=== PATIENT | female | born 1950 | race Caucasian/White ===

== ENCOUNTER 2021-10-21 12:31 | Outpatient (CLI) | payer MEDICARE, BC | END 2021-10-21 12:32 | disposition home or self-care (01) | LOC: CSHRAD 12:31 | PROVIDERS: ATTEND Urology | DX: N39.46 Mixed incontinence (principal); Z87.440 Personal history of urinary (tract) infections | CPT/HCPCS: 51600; 74455 ==

== ENCOUNTER 2022-08-11 11:56 | Emergency (ER) | payer OTHER, MEDICARE, BC | END 2022-08-11 15:02 | disposition home or self-care (01) | LOC: CSHERS 11:56 | DX: M25.512 Pain in left shoulder (principal); M25.522 Pain in left elbow; M54.2 Cervicalgia; I11.0 Hypertensive heart disease with heart failure; I50.9 Heart failure, unspecified; E78.5 Hyperlipidemia, unspecified; W01.0XXA Fall on same level from slipping, tripping and stumbling without subsequent striking against object, initial encounter; Y92.009 Unspecified place in unspecified non-institutional (private) residence as the place of occurrence of the external cause ==

== ENCOUNTER 2023-03-28 12:06 | Outpatient (CLI) | payer MEDICARE, BC | END 2023-03-28 12:07 | disposition home or self-care (01) | LOC: CSHRAD 12:06 | PROVIDERS: ATTEND Family Medicine | DX: M25.522 Pain in left elbow (principal); I70.90 Unspecified atherosclerosis; M19.022 Primary osteoarthritis, left elbow ==

== ENCOUNTER 2024-02-15 12:11 | Emergency (ER) | payer MEDICARE ==
[2024-02-15] MEDS ORDERED: Acetaminophen 500 MG TAB ONE (13:37)
[2024-02-15 14:13] LABS: #Basophils 0.05 10x3/uL (0.0-0.2); #Eosinphils 0.87 10x3/uL (0.0-0.5); #Monocytes 0.49 10x3/uL (0.0-1.1); #Neutrophils 4.29 10x3/uL (1.5-8.4); %Basophils 0.7 % (0.0-2.0); %Eosinophils 11.6 % (0.0-6.0); %Lymphocytes 23.5 % (18.0-47.0); %Monocytes 6.6 % (0.0-10.0); %Neutrophils 57.3 % (40.0-75.0); Hemoglobin 12.2 g/dL (12.0-15.5); Mean Corpuscular Hemoglobin 31.1 pg (27.0-33.0); Mean Corpuscular Volume 94.4 fL (81.6-98.3); Mean Platelet Volume 9.2 fL (7.4-10.4); Platelet Count 199 10x3/uL (150-450); RBC Distribution Width 12.7 % (11.5-14.5); Red Blood Cell (RBC) Count 3.92 10x6/uL (3.90-5.03); White Blood Cell (WBC) Count 7.5 10x3/uL (3.5-10.5)
[2024-02-15 14:26] LABS: ALT (SGPT) 7 U/L (8-55); AST (SGOT) 20 U/L (5-34); Alkaline Phosphatase 81 U/L (40-110); Anion Gap 15 mmol/L (10-20); BUN (Urea Nitrogen) 25 mg/dL (9.8-20.1); Bilirubin, Total 0.7 mg/dL (0.2-1.2); Calc. Creatinine Clearance 0 mL/min (70-130); Calcium 9.3 mg/dL (7.8-10.44); Carbon Dioxide 22 mmol/L (23-31); Chloride 105 mmol/L (98-107); Estimated GFR 51; Glucose 100 mg/dL (83-110); Potassium 4.3 mmol/L (3.5-5.1); Sodium 138 mmol/L (136-145)
[2024-02-15 14:29] LABS: Troponin I Less than 0.010 ng/mL (< 0.028)
[2024-02-15 15:26] LABS: Bilirubin Neg (Negative); Blood, Urine Negative (Negative); Clarity Clear (Clear); Glucose, Urine (Dipstick) Normal (Negative); Ketone, Urine Negative (Negative); Leukocyte Negative (Negative); Nitrite Negative (Negative); Protein, Urine (Dipstick) Negative (Neg-Trace); Urobilinogen Normal mg/dL (Less than 2)
[2024-02-15 16:19] LABS: Bacteria/HPF 2+ HPF (None Seen); CAUTI Indications for Culture Pelvic or flank pain; Mucous/LPF Rare LPF (<2+); RBC/HPF None Seen HPF (0-3); WBC/HPF None Seen HPF (0-3)
[2024-02-15 16:20] LABS: Urine Culture Reflex No No
== END 2024-02-15 16:59 | disposition home or self-care (01) ==
LOC: CSHERS 12:11
DX: S00.03XA Contusion of scalp, initial encounter (principal); M54.2 Cervicalgia; M54.6 Pain in thoracic spine; M54.50 Low back pain, unspecified; I11.0 Hypertensive heart disease with heart failure; I50.9 Heart failure, unspecified; W01.10XA Fall on same level from slipping, tripping and stumbling with subsequent striking against unspecified object, initial encounter
CPT/HCPCS: 36415; 70450; 72125; 72128; 72131; 80053; 81001; 83880; 84484; 85025; 87086; 93005